=== PATIENT | female | born 1975 | race Two or more races ===

== ENCOUNTER 2020-10-18 17:21 | Emergency (ER) | payer OTHER ==
[~2020-10-18 17:21] MED LIST: ALBUTEROL2.5 MG/3 M INH; BACTROBAN OINT22 GM EXT; CODEINE-GUAIFE473 ML PO; DELSYM30 MG/5 ML PO; DOXYCYCLINE HY100 MG PO; EXPECTORANT200 MG PO; LIPITOR20 MG PO; MACROBID 100 M100 M1 PO; NORCO 7.5-3251 EACH PO; NORVASC5 MG PO; OMEGA-3 ACID ETH1 GM PO; OMNICEF 300 MG300 MG PO; PEPCID20 MG PO; PREDNISONE 50 M50 MG PO; PREDNISONE20 MG PO; PYRIDIUM200 MG PO; SINGULAIR10 MG PO; VENTOLIN HFA 66.7 GM INH; ZITHROMAX250 MG PO; ZYRTEC10 M3 PO
[2020-10-18] MEDS ORDERED: BACTROBAN OINT22 GM EXT (18:55)
[2020-10-18] MEDS ORDERED: BACTRIM DS TAB1 EACH PO (18:55)
[2020-10-18] MEDS ORDERED: CEPHALEXIN500 M1 PO (18:55)
== END 2020-10-18 19:20 | disposition home or self-care (01) ==
LOC: ER1 17:21
DX: L02.415 Cutaneous abscess of right lower limb (principal); E78.5 Hyperlipidemia, unspecified; K21.9 Gastro-esophageal reflux disease without esophagitis; F17.210 Nicotine dependence, cigarettes, uncomplicated; I10 Essential (primary) hypertension
CPT/HCPCS: 10060; 87070; 87205; 99283

== ENCOUNTER → 2020-11-14 | Outpatient (CLI) | payer OTHER ==
[~2020-11-14] MED LIST changes: +BACTRIM DS TAB1 EACH PO; +CEPHALEXIN500 M1 PO
== END ==
LOC: KOH-I 14:20
DX: E04.9 Nontoxic goiter, unspecified (principal); E04.1 Nontoxic single thyroid nodule
CPT/HCPCS: 76536

== ENCOUNTER → 2021-04-17 | Outpatient (CLI) | payer OTHER ==
[~2021-04-17] MED LIST changes: +ASPIRIN CHEWABL81 MG PO
== END ==
LOC: ECHO 10:16
DX: R60.0 Localized edema (principal)
CPT/HCPCS: ECHO; 93306

== ENCOUNTER 2021-05-02 14:38 | Emergency (ER) | payer OTHER ==
[~2021-05-02 14:38] MED LIST changes: -ASPIRIN CHEWABL81 MG PO
[2021-05-02 16:17] LABS: HEMOGLOBIN 14.5 gm/dl (12.3-15.3); RED BLOOD COUNT 4.74 M/UL (4.00-5.10); WHITE BLOOD COUNT 17.6 K/UL (4.5-11.0)
[2021-05-02 16:51] LABS: BUN/CREATININE RATIO 19 (0-10)
[2021-05-02] MEDS ORDERED: ASPIRIN CHEWABL81 MG PO (21:28)
== END 2021-05-02 22:04 | disposition home or self-care (01) ==
LOC: ER1 14:38
PROVIDERS: Physician Assistant
DX: R20.2 Paresthesia of skin (principal); J45.909 Unspecified asthma, uncomplicated; I10 Essential (primary) hypertension; E78.00 Pure hypercholesterolemia, unspecified; E11.9 Type 2 diabetes mellitus without complications
CPT/HCPCS: 70450; 70496; 70498; 71046; 80053; 82550; 82553; 83874; 84484; 85025; 85610; 99284; Q9967

== ENCOUNTER → 2021-05-29 | Outpatient (CLI) | payer OTHER ==
[~2021-05-29] MED LIST changes: +ASPIRIN CHEWABL81 MG PO
== END ==
LOC: KOH-I 12:21
DX: M62.81 Muscle weakness (generalized) (principal)
CPT/HCPCS: 70551

== ENCOUNTER → 2021-07-30 | Outpatient (CLI) | payer OTHER | LOC: MRI 09:54 | DX: G45.9 Transient cerebral ischemic attack, unspecified (principal); G93.2 Benign intracranial hypertension | CPT/HCPCS: ECHO; 70551; 93306 ==

== ENCOUNTER → 2021-08-10 | Outpatient (CLI) | payer OTHER ==
[~2021-08-10] MED LIST changes: +AMITRIPTYLINE H10 MG PO; +CRESTOR 10 MG T10 MG PO; +HYDROCHLOROTHIA25 MG PO; +IMITREX50 MG PO; +LISINOPRIL10 MG PO; +PROTONIX 40 MG40 M1 PO; +VITAMIN D3125 MCG PO
[2021-08-10 10:13] LABS: HEMOGLOBIN 13.7 gm/dl (12.3-15.3); RED BLOOD COUNT 4.36 M/UL (4.00-5.10); WHITE BLOOD COUNT 14.4 K/UL (4.5-11.0)
[2021-08-10 10:35] LABS: BUN/CREATININE RATIO 23 (0-10)
== END ==
LOC: OPSV2 08:49
PROVIDERS: Obstetrics & Gynecology
DX: Z01.812 Encounter for preprocedural laboratory examination (principal); N94.6 Dysmenorrhea, unspecified
CPT/HCPCS: 36415; 80053; 81001; 85025

== ENCOUNTER → 2021-08-17 | Day surgery (SDC) | payer OTHER ==
[~2021-08-17] MED LIST changes: +DOCUSATE SODIU250 MG PO; +HYDROCODONE-AC1 EACH PO; +IBUPROFEN600 MG PO
== END | disposition home or self-care (01) ==
LOC: OR 06:08
DX: N80.0 Endometriosis of uterus (principal); N72 Inflammatory disease of cervix uteri; N92.0 Excessive and frequent menstruation with regular cycle; N94.6 Dysmenorrhea, unspecified; E66.9 Obesity, unspecified; E78.2 Mixed hyperlipidemia; I10 Essential (primary) hypertension; J45.909 Unspecified asthma, uncomplicated; K76.0 Fatty (change of) liver, not elsewhere classified; K21.9 Gastro-esophageal reflux disease without esophagitis; D50.9 Iron deficiency anemia, unspecified; K22.2 Esophageal obstruction; Z68.41 Body mass index [BMI] 40.0-44.9, adult; Z20.822 Contact with and (suspected) exposure to COVID-19; R94.31 Abnormal electrocardiogram [ECG] [EKG]; F17.210 Nicotine dependence, cigarettes, uncomplicated; Z98.51 Tubal ligation status
CPT/HCPCS: 93005; C1769; J0690; J1100; J1170; J1885; J2001; J2250; J2270; J2405; J2704; J2710; J3010; J7120

== ENCOUNTER → 2021-10-22 | Day surgery (SDC) | payer OTHER ==
[~2021-10-22] MED LIST changes: +ALBUTEROL1.25 MG/3 INH; +HYDROCODON-ACE1 EAC4 PO; -LISINOPRIL10 MG PO; +LISINOPRIL20 MG PO; +RIZATRIPTAN10 M1 PO; +SYMBICORT 80-10.2 GM INH
== END | disposition home or self-care (01) ==
LOC: OR 05:41
DX: L73.9 Follicular disorder, unspecified (principal); L30.9 Dermatitis, unspecified; L02.412 Cutaneous abscess of left axilla; L02.416 Cutaneous abscess of left lower limb; J45.909 Unspecified asthma, uncomplicated; L73.2 Hidradenitis suppurativa; E66.01 Morbid (severe) obesity due to excess calories; I10 Essential (primary) hypertension; E78.00 Pure hypercholesterolemia, unspecified; G43.109 Migraine with aura, not intractable, without status migrainosus; F17.210 Nicotine dependence, cigarettes, uncomplicated; Z20.822 Contact with and (suspected) exposure to COVID-19; Z68.41 Body mass index [BMI] 40.0-44.9, adult
CPT/HCPCS: J0690; J1100; J1885; J2001; J2405; J2704; J7030; J7120

== ENCOUNTER → 2021-12-29 | Outpatient (CLI) | payer OTHER | LOC: KOH-I 12:52 | DX: E04.2 Nontoxic multinodular goiter (principal); Z79.899 Other long term (current) drug therapy | CPT/HCPCS: 76536 ==

== ENCOUNTER → 2022-04-05 | Outpatient (CLI) | payer OTHER ==
[~2022-04-05] MED LIST changes: +EMGALITY120 MG/1 M SQ; +IRON325 M1 PO; +LEVOTHYROXINE137 MC1 PO; +METFORMIN HCL500 M2 PO
[2022-04-05 09:27] LABS: BUN/CREATININE RATIO 30 (0-10)
== END ==
LOC: OPSV2 08:00
PROVIDERS: Surgery
DX: Z01.812 Encounter for preprocedural laboratory examination (principal); E11.9 Type 2 diabetes mellitus without complications
CPT/HCPCS: 80048

== ENCOUNTER → 2022-04-08 | Day surgery (SDC) | payer OTHER | END | disposition home or self-care (01) | LOC: OR 06:42 | DX: L98.9 Disorder of the skin and subcutaneous tissue, unspecified (principal); I10 Essential (primary) hypertension; E78.00 Pure hypercholesterolemia, unspecified; J45.909 Unspecified asthma, uncomplicated; E66.01 Morbid (severe) obesity due to excess calories; E03.9 Hypothyroidism, unspecified; F17.210 Nicotine dependence, cigarettes, uncomplicated; F32.A Depression, unspecified; Z79.899 Other long term (current) drug therapy | CPT/HCPCS: J0690; J1100; J1170; J1885; J2001; J2250; J2405; J2704; J3010 ==